=== PATIENT | female | born 1980 | race Caucasian/White ===

== ENCOUNTER 2017-12-23 02:00 | Emergency (ER) | payer OTHER ==
[~2017-12-23] VITALS: Ht 160 cm; Wt 59.0 kg
[~2017-12-23 02:00] MED LIST: LEXAPRO10 MG OR; MULTIVITAMIN OR
[2017-12-23 02:04] VITALS: BP 117/74
[2017-12-23] MEDS ORDERED: AMOXICILLIN500 MG PO (02:55)
== END 2017-12-23 03:04 | disposition home or self-care (01) | DRG 153 ==
LOC: ED 02:00
DX: J02.0 Streptococcal pharyngitis (principal); R50.9 Fever, unspecified